=== PATIENT | male | born 1960 | race Caucasian/White ===

== ENCOUNTER → 2023-07-08 11:06 | Outpatient (REF) | payer MEDICARE, BC, SELFPAY | LOC: HWRAD 11:06 | PROVIDERS: ATTENDING PHYSICIAN Radiology Radiation Oncology; FAMILY PHYSICIAN Internal Medicine | DX: C34.00 Malignant neoplasm of unspecified main bronchus (principal) | CPT/HCPCS: 71250 ==

== ENCOUNTER 2024-09-28 09:01 | Outpatient (RCR) | payer MEDICARE, BC, SELFPAY | END 2024-09-28 23:59 | disposition home or self-care (01) | LOC: RPT 09:01 | PROVIDERS: ATTENDING PHYSICIAN Orthopaedic Surgery; FAMILY PHYSICIAN Internal Medicine | DX: Z47.1 Aftercare following joint replacement surgery (principal); Z96.641 Presence of right artificial hip joint; R26.89 Other abnormalities of gait and mobility; Z73.6 Limitation of activities due to disability | CPT/HCPCS: 97110; 97112; 97162 ==

== ENCOUNTER 2024-11-02 06:52 | Outpatient (RCR) | payer MEDICARE, BC, SELFPAY | END 2024-11-02 23:59 | disposition home or self-care (01) | LOC: RPT 06:52 | PROVIDERS: ATTENDING PHYSICIAN Orthopaedic Surgery; FAMILY PHYSICIAN Internal Medicine | DX: Z47.1 Aftercare following joint replacement surgery (principal); Z96.641 Presence of right artificial hip joint; R26.89 Other abnormalities of gait and mobility; Z73.6 Limitation of activities due to disability | CPT/HCPCS: 97110; 97112 ==

== ENCOUNTER 2024-11-29 08:01 | Outpatient (RCR) | payer MEDICARE, BC, SELFPAY | END 2024-11-29 11:54 | disposition home or self-care (01) | LOC: RPT 08:01 | PROVIDERS: ATTENDING PHYSICIAN Orthopaedic Surgery; FAMILY PHYSICIAN Internal Medicine | DX: R26.89 Other abnormalities of gait and mobility (principal); Z47.1 Aftercare following joint replacement surgery; Z73.6 Limitation of activities due to disability; Z96.641 Presence of right artificial hip joint | CPT/HCPCS: 97110; 97112 ==

== ENCOUNTER → 2025-01-04 14:02 | Outpatient (REF) | payer MEDICARE, BC, SELFPAY | LOC: HWRAD 14:02 | PROVIDERS: ATTENDING PHYSICIAN Nurse Practitioner Acute Care; FAMILY PHYSICIAN Internal Medicine | DX: C34.90 Malignant neoplasm of unspecified part of unspecified bronchus or lung (principal); R06.9 Unspecified abnormalities of breathing; J90 Pleural effusion, not elsewhere classified | CPT/HCPCS: 76604 ==

== ENCOUNTER 2025-06-06 08:00 | Outpatient (RCR) | payer MEDICARE, BC, SELFPAY | END 2025-06-06 23:59 | disposition home or self-care (01) | LOC: PURB 08:00 | PROVIDERS: ATTENDING PHYSICIAN Internal Medicine Critical Care Medicine; FAMILY PHYSICIAN Internal Medicine | DX: J44.9 Chronic obstructive pulmonary disease, unspecified (principal); R06.09 Other forms of dyspnea | CPT/HCPCS: 94625; G0237 ==